=== PATIENT | male | born 1975 | race Caucasian/White ===

== ENCOUNTER 2022-01-04 18:09 | Inpatient (IN) | payer OTHER ==
[~2022-01-04] VITALS: Ht 185.4 cm; Wt 79.4 kg
[2022-01-04 19:00] LABS: HEMOGLOBIN 14.6 gm/dl (14.0-17.5); RED BLOOD COUNT 4.44 M/UL (4.20-5.50); WHITE BLOOD COUNT 19.9 K/UL (4.5-11.0)
[2022-01-04 19:14] LABS: BUN/CREATININE RATIO 18 (0-10)
[2022-01-05 01:16] LABS: RED BLOOD COUNT 4.1 M/UL (4.20-5.50); WHITE BLOOD COUNT 19.8 K/UL (4.5-11.0)
[2022-01-05 01:36] LABS: BUN/CREATININE RATIO 19 (0-10)
[2022-01-06 07:32] LABS: HEMOGLOBIN 12.4 gm/dl (14.0-17.5); RED BLOOD COUNT 3.9 M/UL (4.20-5.50)
[2022-01-06 07:51] LABS: BUN/CREATININE RATIO 27 (0-10)
[2022-01-06] MEDS ORDERED: LEVOFLOXACIN500 MG PO (18:51)
[2022-01-06] MEDS ORDERED: DOXYCYCLINE HY100 MG PO (18:51)
[2022-01-06] MEDS ORDERED: ACETAMINOPHEN325 MG PO (18:51)
[2022-01-07 05:49] LABS: HEMOGLOBIN 12.2 gm/dl (14.0-17.5); RED BLOOD COUNT 3.84 M/UL (4.20-5.50); WHITE BLOOD COUNT 19.7 K/UL (4.5-11.0)
[2022-01-07 05:58] LABS: BUN/CREATININE RATIO 28 (0-10)
== END 2022-01-07 14:10 | disposition home or self-care (01) | DRG 854 ==
LOC: ER1 18:09 → MED SURG 4 22:16 → CDU 22:16 → MED SURG 4 01-05 00:32
PROVIDERS: Dentist Oral and Maxillofacial Surgery; Family Medicine; Physician Assistant; ADMIT Internal Medicine
PROC: 3E03329 Introduction of Other Anti-infective into Peripheral Vein, Percutaneous Approach (ICD-10-PCS; 2022-01-04)
PROC: 0CTX0Z1 Resection of Lower Tooth, Multiple, Open Approach (ICD-10-PCS; 2022-01-05)
PROC: 0C940ZZ Drainage of Buccal Mucosa, Open Approach (ICD-10-PCS; principal; 2022-01-05 17:59)
PROC: 0N9T0ZZ Drainage of Right Mandible, Open Approach (ICD-10-PCS; 2022-01-05 17:59)
DX: A41.9 Sepsis, unspecified organism (principal); E87.2 Acidosis; K12.2 Cellulitis and abscess of mouth; K04.7 Periapical abscess without sinus; D72.829 Elevated white blood cell count, unspecified; M27.2 Inflammatory conditions of jaws; F17.210 Nicotine dependence, cigarettes, uncomplicated; J02.9 Acute pharyngitis, unspecified; Z83.3 Family history of diabetes mellitus; Z82.49 Family history of ischemic heart disease and other diseases of the circulatory system
CPT/HCPCS: 70491; 80048; 80053; 83605; 83735; 85025; 85027; 85610; 85652; 85730; 86140; 87040; 87070; 87205; 96365; 96372; 96375; 96376; 99284; G0378; J0696; J1100; J1170; J1580; J1650; J1885; J2001; J2250; J2270; J2405; J2704; J3010; Q9967